=== PATIENT | male | born 1945 | race Caucasian/White ===

== ENCOUNTER 2023-05-05 09:31 | Emergency (ER) | payer OTHER, SELFPAY ==
[2023-05-05 10:41] VITALS: BP 159/85
[2023-05-05 11:02] LABS: % Basophils 0.6 % (0-2); % Eosinophils 1.3 % (0-6); % Immature Granulocytes 0.3 % (0-0.5); % Lymphocytes 23.3 % (20.5-51.1); % Monocytes 7.8 % (1.7-9.3); % Neutrophils 66.7 % (42.2-75.2); Absolute Basophils 0.1 10^3/uL (0-0.2); Absolute Eosinophils 0.1 10^3/uL (0-0.7); Absolute Lymphocytes 2.2 10^3/uL (1.2-3.4); Absolute Monocytes 0.8 10^3/uL (0.1-0.6); Absolute Neutrophils 6.4 10^3/uL (1.4-6.5); Hematocrit 38.4 % (39.0-52.0); Mean Corp Hgb Conc. 33.9 g/dL (33.0-37.0); Mean Corpuscular Hgb 29.2 pg (27.0-31.0); Mean Corpuscular Volume 86.3 fL (80.0-94.0); Mean Platelet Volume 9.9 fL (7.4-10.4); Nucleated Red Blood Cells % 0 % (-); Platelet Count 149 10^3/uL (130-400); Red Blood Cell Count 4.45 10^6/uL (4.70-6.10); Red Cell Dist. Width 13.5 % (11.5-14.5); White Blood Cell Count 9.6 10^3/uL (4.8-10.8)
[2023-05-05 11:19] LABS: ALT (SGPT) 17 U/L (0-50); AST (SGOT) 26 U/L (17-59); Albumin 4.2 g/dl (3.5-5.0); Alkaline Phosphatase 91 U/L (38-126); Blood Urea Nitrogen 25 mg/dl (9-20); Calcium 9.2 mg/dl (8.4-10.2); Carbon Dioxide 24 mmol/L (22-30); Chloride 106 mmol/L (98-107); Glucose 103 mg/dl (70-99); Potassium 4.6 mmol/L (3.5-5.1); Sodium 135 mmol/L (135-145); Total Bilirubin 0.7 mg/dl (0.2-1.3); Total Protein 7.9 g/dl (6.3-8.2); eGFR > 60.00
[2023-05-05 11:22] LABS: NT-proBNP 194 pg/ml; Troponin I < 0.012 ng/ml
--- NOTE | 2023-05-05 11:29 | ED.GENMED ---
History of Present Illness
General
Chief Complaint: Breathing Problem
Source: patient and spouse
Time Seen by Provider: 05/05/23 10:28
Travel History
Have you had any contact with someone who has COVID-19?: No
Do you have any symptoms of coronavirus? Fever > 100 degrees, chills, cough, shortness of breath, sore throat, loss of taste or smell, muscle aches, or headache?: No
History of Present Illness
History of Present Illness:
77-year-old male with past medical history of atrial fibrillation, CAD status post pacemaker placement, hyperlipidemia, previous CVA presenting to the emergency department for evaluation after he has been experiencing generalized fatigue, feeling
foggy, short of breath and generally unwell for the last 3+ weeks, seen by his contribution solicitor who ordered the patient an echocardiogram but is not scheduled to have this until May 25. Symptoms seemed worse today which is what prompted the patient to
come to the ER for further evaluation. Patient denies any fevers, chills, rigors, cough, hemoptysis, pleurisy, nausea, vomiting, melena or hematochezia. Patient reports that he had been started on Eliquis a few months back due to breakthrough
A-fib episodes despite his. He reports that he had previously been on Celebrex due to some chronic back pain but had discontinued this in favor of the Xarelto. Also of note, patient recently drove over a 3-day span to [place] but was not sure if
he had the symptoms prior to or during his travels.
Past History
Past History
ED Past Medical History: Arrthythmia, CAD, CVA, GERD, Hypercholesterolemia and Other (BPH)
ED Past Surgical History: Cardiac, Orthopedic and Other (Hernia repair)
Social History
Tobacco: Non-smoker
Alcohol: None
Drug: None
Personal:
Living: with family
Review of Systems
Review of Systems
All Other Systems: ROS reviewed and negative except as documented in HPI and ROS
Phy Exam
Physical Exam
Physical Exam:
GENERAL: Alert , in no apparent distress
EYE: conjunctiva clear
NECK: Supple
ENT: o/p clr, mmm.
CARDIAC: Regular rate and rhythm, systolic murmur appreciated
LUNGS: Clear breath sounds bilaterally, no acute respiratory distress, no wheezes/rales/rhonchi
Abdomen: Soft, nontender, nondistended
NEUROLOGICAL: Alert and oriented
SKIN: Warm and dry, skin intact.
MUSCULOSKELETAL: well perfused. no edema
PSYCH: Normal and appropriate interaction.
Scores
Heart Failure Risk
Heart Failure Risk Score: Not Applicable
Heart Score for Chest Pain Patients
STEMI patient?: Not applicable
Withdrawal Assessment of Alcohol
Withdrawal Assessment Completed?: Not applicable
Course
Orders/Labs/Results
Orders:
Orders
05/05/23 10:50
Electrocardiogram (*1) Urgent
Reason for Study: Shortness of Breath
EKG- Treatment ONCE
05/05/23 10:52
Complete Blood Count/With Diff Urgent
Comprehensive Metabolic Panel Urgent
NT-proBNP Urgent
Troponin I Urgent
05/05/23 10:54
Interrogate Pacemaker- Treatment ONCE
CR Chest - 2 Views Urgent
Comment:
Reason For Exam: SOB
Abnormal Lab Results
05/05/23
10:52
RBC 4.45 L 10^6/uL
(4.70-6.10)
Hct 38.4 L %
(39.0-52.0)
Absolute Monos (auto) 0.8 H 10^3/uL
(0.1-0.6)
BUN 25 H mg/dl
(9-20)
Glucose 103 H mg/dl
(70-99)
05/05/23 10:52
05/05/23 10:52
Vital Signs
Initial and Last Documented VS:
Initial Vital Signs
Temp Pulse Resp Pulse Ox
97.8 F 74 20 97
05/05/23 09:38 05/05/23 09:38 05/05/23 09:38 05/05/23 09:38
Last Documented Vital Signs
Temp Pulse Resp BP Pulse Ox
97.8 F 65 19 159/85 97
05/05/23 09:38 05/05/23 12:00 05/05/23 12:00 05/05/23 10:41 05/05/23 12:00
MDM/Problems Addressed
Differential Diagnosis Includes:
Valvular dysfunction, cardiac dysrhythmia, electrolyte disturbance, CHF, anemia, PE considered however given patient is already on an anticoagulant combined with his normal vital signs and overall well-appearing presentation I am not suspicious for
this as a likely diagnosis
MDM/Problems Addressed:
77-year-old male present emergency department for evaluation of fatigue, shortness of breath and generally feeling unwell over the last 3+ weeks. Overall patient's vital signs are very reassuring and he is very well-appearing. I am less suspicious
for an emergent pathology and ultimately suspect potential for one of his chronic medical conditions to be cause of symptoms. He did have a systolic murmur that was noted on exam and patient notes a history of this. I do think patient likely needs
to have his echocardiogram completed however on a nonemergent basis. Will check labs including troponin and BNP. Chest x-ray ordered. Reassessment following with anticipation of discharge and outpatient follow-up.
*Radiology
Radiology exam reviewed: preliminary read by ED provider (Normal chest x-ray)
*Pulse Oximetry
Patient hypoxic: no
*EKG
Interpreted by ED Provider?: Yes
Comparison EKG: no changes
Heart Rate: 67
Rate: normal
Rhythm: av sequential
*Electronics Production Supervisor Interpretation
Rate: normal
Rhythm: av sequential
*Critical Care Note
Total Time (30-74mins, 75-104mins- exclusive of procedures): Not Applicable
Data Reviewed
Review of Other/Old Records Reveals: Labs and Radiology Studies
Patient Management
Discussion with other providers: PCP
Escalation/DeEscalation of care consider admission/obs:
Patient's labs and imaging are all unremarkable. There is no evidence for ischemia. Pacemaker was interrogated and there have not been any abnormal cardiac dysrhythmias since his pacer was last interrogated on April 16. Notified chest pain
hotline to help expedite outpatient follow-up for the patient. Will also notify patient's primary care physician to expedite follow-up with the primary care provider. Patient is otherwise safe for discharge home and aware cautions.
ED Attending Note
-
Portions of this chart may have been created with voice recognition software.� Occasional wrong word or��sound alike� substitutions may have occurred due to the inherent limitations of voice recognition software.
Discharge Plan
Departure
Patient Disposition: Home (Routine Discharge)
Date of Disposition: 05/05/23
Time of Disposition: 12:07
Patient with high blood pressure during this ER visit?: Yes
Discharge Problem:
Shortness of breath
Instructions: Shortness of Breath (Dyspnea) (DC), Chest Pain CBC Follow Up
Prescriptions:
No Action
aspirin 81 MG tablet,delayed release (DR/EC)
81 mg PO DAILY
Hold Instructions: Resume on 11/19/21.
alfuzosin 10 MG tablet extended release 24 hr
10 mg PO DAILY
ezetimibe-simvastatin 10-20 mg Tablet
1 tab PO HS
omeprazole 20 mg Tablet,Delayed Release (Dr/Ec)
20 mg PO Q48H
PreserVision AREDS-2
1 tab PO BID
mupirocin 2 % ointment
1 applic topical BID Qty: 1 0RF
cyanocobalamin (vitamin B-12) [Vitamin B-12] 1,000 mcg Tablet
1,000 mcg PO DAILY
docusate sodium 100 mg Capsule
100 mg PO BID Qty: 30 0RF
meloxicam 15 mg Tablet
15 mg PO DAILY Qty: 30 0RF
acetaminophen 325 mg Tablet
650 mg PO Q4HWA Qty: 30 0RF
oxycodone 5 mg Tablet
5 mg PO Q4HPRN PRN (Reason: moderate pain) Qty: 20 0RF
aspirin 325 mg tablet
325 mg PO DAILY Qty: 30 0RF
Rx Instructions:
Full dose aspirin once a day for 4 weeks post op. After 4 weeks, you may resume 81 mg aspirin
sennosides [senna] 8.6 mg tablet
17.2 mg PO BID Qty: 20 0RF
Referrals:
Niharika De Anda DO [Family Provider] -
Interventions
Interventions:
*Risk Screen - Suicide Last Done: 05/05/23 09:38
*General Assessment Last Done: 05/05/23 09:38
*Neglect/Abuse Screening Last Done: 05/05/23 09:38
ED- Fall Risk Assessment Last Done: 05/05/23 10:38
*ED COVID-19 Vaccine History Last Done: 05/05/23 10:38
*Nursing Disposition Last Done: 05/05/23 12:19
ED- Cardiac Assessment Last Done: 05/05/23 10:38
ED- Pulmonary Assessment Last Done: 05/05/23 10:38
== END 2023-05-05 12:24 | disposition home or self-care (01) ==
LOC: EMR 09:31
PROVIDERS: Physician Assistant Medical; EMERGENCY PHYSICIAN Student in an Organized Health Care Education/Training Program; FAMILY PHYSICIAN Family Medicine
DX: R06.02 Shortness of breath (principal); R03.0 Elevated blood-pressure reading, without diagnosis of hypertension; I48.91 Unspecified atrial fibrillation; I25.10 Atherosclerotic heart disease of native coronary artery without angina pectoris; Z95.0 Presence of cardiac pacemaker; E78.00 Pure hypercholesterolemia, unspecified
CPT/HCPCS: 99285; 93288; 71046; 80053; 83880; 84484; 85025; 93005

== ENCOUNTER → 2023-05-07 14:44 | Outpatient (REF) | payer OTHER, SELFPAY | LOC: DHCBC HW 14:44 | PROVIDERS: ATTENDING PHYSICIAN Internal Medicine Cardiovascular Disease; FAMILY PHYSICIAN Family Medicine | DX: I25.10 Atherosclerotic heart disease of native coronary artery without angina pectoris (principal); Z95.0 Presence of cardiac pacemaker; E78.2 Mixed hyperlipidemia | CPT/HCPCS: 93306 ==

== ENCOUNTER → 2023-05-08 11:26 | Outpatient (REF) | payer OTHER, SELFPAY | LOC: DHCBC/DCA 11:26 | PROVIDERS: ATTENDING PHYSICIAN Nurse Practitioner; FAMILY PHYSICIAN Family Medicine | DX: R06.09 Other forms of dyspnea (principal); R07.89 Other chest pain; I25.10 Atherosclerotic heart disease of native coronary artery without angina pectoris | CPT/HCPCS: 78452; 93017; A9500; J2785 ==

== ENCOUNTER 2023-05-15 08:14 | Day surgery (SDC) | payer OTHER, SELFPAY ==
[2023-05-15] VITALS (19 sets, daily range): BP systolic 145–178; BP diastolic 81–109; BMI 27.7
[2023-05-15] MEDS: NSS 263 ML IV (09:55)
--- NOTE | 2023-05-15 12:40 | W.PN.UPDATE ---
Update Note
Progress Note Update
77 y/o M s/p cardiac catheterization. He is feeling well following his procedure: no CP or SOB. Tolerating diet. Right radial cath site C/D/I, no hematoma.
He will resume Eliquis tonight. Activity restrictions reviewed.
F/U in [facility] office 06/03/23.
For discharge to home after 3pm if all remains stable.
--- NOTE | 2023-05-15 13:21 | ITS.CL.CATH ---
[facility] - Catheterization
Cardiac Catheterization
Procedure Report:
CARDIAC CATHETERIZATION REPORT
Date of Procedure: 05/15/2023
Referring: Elver Shields MD
HEMODYNAMIC DATA
AO: 180/90
LV: 180/25
LEFT VENTRICULOGRAPHY: Normal left ventricular wall motion with EF 58%
CORONARY ANGIOGRAPHY
Dominance: Right
Left Main: Normal
LAD: Moderate calcification of the proximal and mid LAD with mild luminal irregularities in the LAD proper. The very large first diagonal branch has 40% ostial stenosis. The medium sized third diagonal branch has 60% ostial stenosis.
Circumflex: 50% proximal circumflex stenosis spanning the takeoff of the chronically occluded OM1. The remainder of the circumflex proper has trivial luminal disease. OM1 is occluded at its origin and faintly fills retrograde via collaterals.
This occlusion was identified by a catheterization procedure at [facility] in 2013.
RCA: The RCA is dominant with 30% proximal and 60-70% mid stenoses.
FloWire assessment: At the conclusion the diagnostic study patient underwent FloWire assessment of the proximal circumflex and mid RCA disease. Heparin was used for anticoagulation. A JL 4 guide catheter was used for the left coronary assessment.
A JR4 guide was used for the right coronary assessment. A Intellijoule flow wire was used. Results include the following:
Left circumflex: iFR 0.96, 0.97, 0.97. These are all consistent with nonflow-limiting disease.
RCA: iFR 1.0, 1.0. These are consistent with nonflow-limiting disease.
Closure Device: None-the procedure was performed via the right radial artery. The Fernie's test was normal prior to the procedure.
Radiation (mGy): 490
DAP (cm2.Gy): 35.9
Fluoroscopy time: 10.5
CONCLUSIONS
1: Systemic hypertension
2: Normal left ventricular function with EF 58%
3. Multivessel CAD as described-the proximal circumflex and mid RCA disease is nonflow limiting
4. Continue medical therapy/risk factor modification. We will resume Eliquis this evening. He has been advised to check home blood pressures and bring all readings to all physician visits
Copy to: Elver Shields MD, Niharika De Anda,
Fernie Tracey MD, [facility], [facility]
--- NOTE | 2023-05-15 15:00 | PTCARENOTE ---
At 1350 band was checked before providing handoff report and was found to be oozing significantly. With AUDITOR APPRAISER (Flor) and additional RN (Alva Haynes) assistance, the band was removed, site was cleaned and noted to be dry and intact with no s/s of
hematoma. A new radial band put back in place with 10cc of air instilled. Dr. Tracey was at the bedside during band placement and ordered that a second radial band be place above and next to the original band. The additional band was placed per
order with 7cc of air instilled. Pulse ox is 94% on the right hand. Patient denies dizziness and nausea. Patient stated no complaints at this time. Will continue to closely monitor.
== END 2023-05-15 17:25 | disposition home or self-care (01) ==
LOC: CATH 08:14
PROVIDERS: ATTENDING PHYSICIAN Internal Medicine Cardiovascular Disease; FAMILY PHYSICIAN Family Medicine; OTHER PHYSICIAN Internal Medicine Cardiovascular Disease
DX: I25.10 Atherosclerotic heart disease of native coronary artery without angina pectoris (principal); I10 Essential (primary) hypertension; Z86.73 Personal history of transient ischemic attack (TIA), and cerebral infarction without residual deficits; Z95.0 Presence of cardiac pacemaker; K21.9 Gastro-esophageal reflux disease without esophagitis; Z79.82 Long term (current) use of aspirin; Z79.891 Long term (current) use of opiate analgesic; I25.84 Coronary atherosclerosis due to calcified coronary lesion
CPT/HCPCS: 93799 ×2; 85347; 93458; 93571; 93572; C1769; C1894; Q9967

== ENCOUNTER 2023-05-24 11:31 | Emergency (ER) | payer OTHER, SELFPAY ==
[2023-05-24 11:37] VITALS: BP 155/91
[2023-05-24 12:21] VITALS: BMI 27.3
--- NOTE | 2023-05-24 13:08 | ED.GENMED ---
History of Present Illness
General
Chief Complaint: Back Pain
Source: patient
Exam Limitations: none
Time Seen by Provider: 05/24/23 12:33
Travel History
Have you had any contact with someone who has COVID-19?: No
Do you have any symptoms of coronavirus? Fever > 100 degrees, chills, cough, shortness of breath, sore throat, loss of taste or smell, muscle aches, or headache?: No
History of Present Illness
History of Present Illness:
77-year-old male presents complaining of ongoing and worsening midthoracic back pain. It is more on the right side. He is anticoagulated on Eliquis. He has a history of A-fib recently. He is not short of breath. No chest pain. No fever. No
urinary symptoms. He denies any pain that radiates to the legs. He has been taking tramadol which has been helping but not more recently. He is using Ativan half a milligram daily. He states at times the pain gets so bad that he becomes anxious.
He is at his wits end. He had an epidural steroid injection in the past as well which helped but now that he is on Eliquis he is unable to get these. No new injury. No other complaints at this time
Past History
Past History
ED Past Medical History: Arrthythmia, CAD, CVA, GERD, Hypercholesterolemia and Other (BPH)
ED Past Surgical History: Cardiac, Orthopedic and Other (Hernia repair)
Social History
Tobacco: Non-smoker
Alcohol: None
Drug: None
Personal:
Living: with family
Phy Exam
Physical Exam
Physical Exam:
General: Uncomfortable appearing male no acute respiratory distress
HEENT: Normocephalic atraumatic
Heart: Regular rate and rhythm no murmurs
Lungs: Clear to auscultation bilaterally no wheezing
Musculoskeletal exam: Tenderness over the mid thoracic spine and just to the right in the paraspinous area of the thoracic spine. Lumbar spine and costovertebral angles nontender
Vascular: 2+ dorsalis pedis pulse bilateral feet
Neurologic: 2+ reflexes to the lower extremities. Good strength and sensation to lower extremity
Course
Orders/Labs/Results
Orders:
Orders
05/24/23 13:05
CT Thoracic Spine W/o Iv Contr Urgent
Comment:
Reason For Exam: pain, midthoracic
diazePAM [Valium Injection] 5 mg IV NOW STA
Vital Signs
Initial and Last Documented VS:
Initial Vital Signs
Temp Pulse Resp BP Pulse Ox
97.8 F 79 18 155/91 97
05/24/23 11:37 05/24/23 11:37 05/24/23 11:37 05/24/23 11:37 05/24/23 11:37
Last Documented Vital Signs
Temp Pulse Resp BP Pulse Ox
97.8 F 82 18 115/70 96
05/24/23 11:37 05/24/23 15:58 05/24/23 15:58 05/24/23 15:58 05/24/23 15:58
MDM/Problems Addressed
Differential Diagnosis Includes:
Severe mid back pain. Acute on chronic. Do not suspect PE given anticoagulated state. He does have a cardiac cath done 2 days ago which was clean. Do not suspect cardiac related issue. Do suspect more of a musculoskeletal back pain. CT of
thoracic spine pending. Try IV Valium to this.
*Critical Care Note
Total Time (30-74mins, 75-104mins- exclusive of procedures): Not Applicable
Update Note
Update Note:
Patient feeling better after Valium here in the emergency room. CT scan shows stable findings. No new fracture or concerning lesions otherwise. Will send patient home with a prescription for Valium for muscle relaxation to help with pain relief.
He will continue his tramadol. He has lidocaine patches. He will continue to follow-up with his doctors otherwise
ED Attending Note
-
Portions of this chart may have been created with voice recognition software.� Occasional wrong word or��sound alike� substitutions may have occurred due to the inherent limitations of voice recognition software.
Discharge Plan
Departure
Patient Disposition: Home (Routine Discharge)
Date of Disposition: 05/24/23
Time of Disposition: 15:51
Patient with high blood pressure during this ER visit?: No
Discharge Problem:
Back pain
Prescriptions:
New
diazepam [Valium] 5 mg tablet
5 mg PO Q8H PRN (Reason: muscle spasm) Qty: 7 0RF
No Action
ezetimibe-simvastatin 10-20 mg Tablet
1 tab PO HS
omeprazole 20 mg Tablet,Delayed Release (Dr/Ec)
20 mg PO Q48H
PreserVision AREDS-2
1 tab PO BID
cyanocobalamin (vitamin B-12) [Vitamin B-12] 1,000 mcg Tablet
1,000 mcg PO DAILY
acetaminophen 325 mg Tablet
650 mg PO Q4HWA Qty: 30 0RF
tramadol 50 mg Tablet
50 mg PO Q8H PRN (Reason: pain)
metoprolol succinate 25 mg Tablet Extended Release 24 Hr
25 mg PO DAILY
tadalafil 5 mg Tablet
5 mg PO DAILY
Eliquis 5 mg Tablet
5 mg PO BID
Referrals:
Niharika De Anda DO [Family Provider] -
Interventions
Interventions:
*Risk Screen - Suicide Last Done: 05/24/23 11:37
*General Assessment Last Done: 05/24/23 11:37
*Neglect/Abuse Screening Last Done: 05/24/23 11:37
ED- Fall Risk Assessment Last Done: 05/24/23 12:21
*ED COVID-19 Vaccine History Last Done: 05/24/23 12:21
*Nursing Disposition Last Done: 05/24/23 15:59
ED-Musculoskeletal Assessment Last Done: 05/24/23 12:21
Discharge Date and Time
Discharge Date/Time: 05/24/23 15:59
Print Language: MONTSERRATIAN
[2023-05-24 13:19] VITALS: BP 154/86
[2023-05-24] MEDS: VALIUM INJECTION 5 MG IV (13:20)
[2023-05-24 14:00] VITALS: BP 114/69
[2023-05-24 15:58] VITALS: BP 115/70
== END 2023-05-24 15:59 | disposition home or self-care (01) ==
LOC: EMR 11:31
PROVIDERS: EMERGENCY PHYSICIAN Emergency Medicine; FAMILY PHYSICIAN Family Medicine
DX: M54.6 Pain in thoracic spine (principal); I48.91 Unspecified atrial fibrillation; K21.9 Gastro-esophageal reflux disease without esophagitis; E78.00 Pure hypercholesterolemia, unspecified; I25.10 Atherosclerotic heart disease of native coronary artery without angina pectoris; N40.0 Benign prostatic hyperplasia without lower urinary tract symptoms; Z86.73 Personal history of transient ischemic attack (TIA), and cerebral infarction without residual deficits; Z79.899 Other long term (current) drug therapy; Z79.01 Long term (current) use of anticoagulants; Z88.8 Allergy status to other drugs, medicaments and biological substances
CPT/HCPCS: 99284; 96374; 72128

== ENCOUNTER 2023-06-01 17:45 | Inpatient (IN) | payer OTHER, SELFPAY ==
[2023-06-01] VITALS (24 sets, daily range): BP systolic 73–169; BP diastolic 50–106; PULSE 65–90; BMI 26.9; BMI 26.5
--- NOTE | 2023-06-01 11:27 | EDRN ---
Dr. Trevizo in room w/ pt at this time.
[2023-06-01 11:36] LABS: % Basophils 0.4 % (0-2); % Eosinophils 0.4 % (0-6); % Immature Granulocytes 0.6 % (0-0.5); % Lymphocytes 16.2 % (20.5-51.1); % Monocytes 7.9 % (1.7-9.3); % Neutrophils 74.5 % (42.2-75.2); Absolute Immature Granulocytes 0.1 10^3/uL (0-0.05); Absolute Lymphocytes 1.8 10^3/uL (1.2-3.4); Absolute Monocytes 0.9 10^3/uL (0.1-0.6); Absolute Neutrophils 8.2 10^3/uL (1.4-6.5); Hemoglobin 13.2 g/dL (13.0-18.0); Mean Corp Hgb Conc. 33.8 g/dL (33.0-37.0); Mean Corpuscular Hgb 29.5 pg (27.0-31.0); Mean Corpuscular Volume 87.1 fL (80.0-94.0); Mean Platelet Volume 10.1 fL (7.4-10.4); Nucleated Red Blood Cells % 0 % (-); Platelet Count 133 10^3/uL (130-400); Red Blood Cell Count 4.48 10^6/uL (4.70-6.10); Red Cell Dist. Width 13.6 % (11.5-14.5)
--- NOTE | 2023-06-01 11:40 | EDRN ---
Pacemaker interrogated at this time.
[2023-06-01 11:42] LABS: ALT (SGPT) 25 U/L (0-50); AST (SGOT) 23 U/L (17-59); Albumin 4.2 g/dl (3.5-5.0); Alkaline Phosphatase 71 U/L (38-126); Blood Urea Nitrogen 39 mg/dl (9-20); Calcium 9.6 mg/dl (8.4-10.2); Carbon Dioxide 22 mmol/L (22-30); Chloride 101 mmol/L (98-107); Estimated Creatinine Clearance 59 ml/min; Glucose 134 mg/dl (70-99); Sodium 134 mmol/L (135-145); Total Bilirubin 0.6 mg/dl (0.2-1.3); Total Protein 7.9 g/dl (6.3-8.2); eGFR > 60.00
[2023-06-01 11:43] LABS: INR 1.12; PT 14.2 Sec (11.4-14.6)
[2023-06-01 11:54] LABS: Troponin I < 0.012 ng/ml
--- NOTE | 2023-06-01 12:17 | EDRN ---
Pacemaker interrogation report given to Dr. Trevizo at this time.
--- NOTE | 2023-06-01 12:31 | ED.GENMED ---
History of Present Illness
General
Chief Complaint: Fall
Source: patient
Exam Limitations: none
Time Seen by Provider: 06/01/23 11:11
Nursing documentation reviewed up to this point in time: agreed with
Travel History
Have you had any contact with someone who has COVID-19?: No
Do you have any symptoms of coronavirus? Fever > 100 degrees, chills, cough, shortness of breath, sore throat, loss of taste or smell, muscle aches, or headache?: No
History of Present Illness
History of Present Illness:
Patient presents to ED secondary to syncopal episode this morning. Patient had walked up approximately 6 steps to fix the clock when he experienced lightheadedness, as if he may 'pass out'. Next recollection is patient being found on the bottom of
the steps. Patient's spouse who was in next room, heard a noise, and came over immediately. Patient was lying on the floor, with eyes open. Patient has an abrasion on top of his head as well mild right-sided rib pain as well as left thumb pain.
Denies preceding chest palpitations or shortness of breath. Denies nausea or diaphoresis. Of note, patient has been experiencing lightheadedness recently, secondary to recently diagnosed Parkinson disease, as well as drug effect from metoprolol.
Patient has been off metoprolol for the past 1 week. In addition, patient is currently taking Alfuzosin for BPH. This morning, patient when he woke up, noticed that he felt weak and lightheaded. When he checked his blood pressure, it was noted to
be 70 systolic. Patient has been checking his blood pressure daily secondary to recent hypotension. Patient proceeded to have his breakfast afterwards, prior to syncopal episode.
Past History
Past History
ED Past Medical History: Arrthythmia, CAD, CVA, GERD, Hypercholesterolemia and Other (BPH)
ED Past Surgical History: Cardiac, Orthopedic and Other (Hernia repair)
Social History
Tobacco: Non-smoker
Alcohol: None
Drug: None
Personal:
Living: with family
Review of Systems
Review of Systems
Allergies reviewed?: Yes
All Other Systems: ROS reviewed and negative except as documented in HPI and ROS
Constitutional: Reports no symptoms
EENT: Reports no symptoms
Respiratory: Reports no symptoms
Cardiac: Reports syncope
ABD/GI: Reports no symptoms
: Reports no symptoms
Musculoskeletal: Reports other (finger pain)
Skin: Reports other (scalp abrasion)
Neurological: Reports dizzy
Phy Exam
Physical Exam
Physical Exam:
Physical Exam
General: no apparent distress, not acutely ill. afebrile.
Head: superficial abrasion noted over top of scalp without active bleeding.
Neck: supple. no meningeal signs.
Heart: s1/s2 regular rate and rhythm, no murmur. equal radial pulses.
Lungs: no acute respiratory distress. clear bilaterally. chest wall nontender to palpation.
Abdomen: normal bowel sounds. not tender.
Neuro: alert and oriented. no focal neurological deficits
Skin: no rash
Psychiatric: well kept. interactive and cooperative
Extremities: left thumb: nontender without ecchymosis.
Course
Orders/Labs/Results
Orders:
Orders
06/01/23
CR Hip - RT w/wo Pel 2-3 Vw* Urgent
Reason For Exam: FALL
Include a pelvis x-ray?: Yes
06/01/23 Breakfast
Cholesterol Lowering
At Your Request: Full Participation
Cholesterol Lowering: Sodium, 2 Gram
06/01/23 10:56
Electrocardiogram (*1) Urgent
Reason for Study: Chest Pain
Cardiac Monitoring- Treatment ONCE
EKG- Treatment ONCE
06/01/23 11:12
Complete Blood Count/With Diff Urgent
Troponin I Urgent
06/01/23 11:13
Comprehensive Metabolic Panel Urgent
Prothrombin Time Urgent
06/01/23 12:39
CT Head W/o Iv Contrast Urgent
Comment:
Reason For Exam: trauma
Orthostatic VS- Treatment ONCE
CR Ribs-right 3 Vw W/pa Chest* Urgent
Comment:
Reason For Exam: trauma
06/01/23 14:07
0.9% Sodium Chloride 1000 ml [Nss] 1,000 ml IV BOLUS
06/01/23 15:49
0.9% Sodium Chloride 250 ml [Nss] 250 ml IV BOLUS
06/01/23 16:00
0.9% Sodium Chloride 1000 ml [Nss] 1,000 ml IV 100 mls/hr
06/01/23 16:11
Lactated Ringers [Lr] 1,000 ml IV BOLUS
06/01/23 17:02
Admit/Transfer Patient As Directed
Co-Sign Provider:
Level of Care: Inpatient admission
Assign to:: Telemetry
Physician / Group: syncope
Diagnosis: syncope
Reason for Telemetry: Syncope
Date to Stop Telemetry: 06/03/23
Time to Stop Telemetry: 11:00
Reason for Hospitalization: syncope
Expected length of stay greater than two midnights?: Yes
ELOS- Estimated Length of Stay in days: 3
I certify the patient meets the requirements for IP care: Yes
06/01/23 17:04
Code Status As Directed
Resuscitation Status: Full Code
06/01/23 17:22
Urinalysis Reflex To Culture Routine
Date Specimen was Collected: 06/01/23
Time Specimen was Collected: 17:11
Blood Culture Q30M
CHEO Source: Blood/Venous
Specimen Description:
06/01/23 17:35
Blood Culture Q30M
CHEO Source: Blood/Venous
Specimen Description:
06/01/23 20:21
Acetaminophen [Tylenol] 650 mg PO Q4HPRN PRN
Apixaban [Eliquis] 5 mg PO BID
Midodrine [ProAmatine] 5 mg PO TID@0800,1300,1800
Prednisone [Deltasone] 4 mg PO DAILY
Tramadol HCl [Ultram] 50 mg PO Q8HPRN PRN
ezetimibe-simvastatin [Vytorin 10-20] 1 tablet PO QPM
06/01/23 20:21
CARDIOLOGY CONSULT Routine
Consulting Provider: Zachariah Copeland
Was physician already notified: Yes
NEUROLOGY CONSULT Routine
Consulting Provider: Juan Chen
Was physician already notified: Yes
Abdominal Binder As Directed
Activity As Directed
Activity Level: As Tolerated
Vital Signs As Directed
Frequency: Per unit guidelines
06/02/23 06:00
Occupational Therapy Consult [Ot Eval And Treat] IN AM
Physical Therapy Consult [Pt Eval And Treat] IN AM
Activity Level: As Tolerated
06/02/23 06:39
Basic Metabolic Panel IN AM
Complete Blood Count/No Diff IN AM
Cortisol, Random IN AM
TSH Reflex To Free T4 IN AM
06/02/23 08:00
Escitalopram Oxalate [Lexapro] 10 mg PO DAILY
06/03/23 06:00
Basic Metabolic Panel IN AM
Complete Blood Count/No Diff IN AM
06/03/23 08:00
Pantoprazole [Protonix] 40 mg PO Q48H
06/03/23 11:00
DC Protocol for Telemetry ONCE
06/04/23 06:00
Basic Metabolic Panel IN AM
Complete Blood Count/No Diff IN AM
06/05/23 06:00
Basic Metabolic Panel IN AM
Complete Blood Count/No Diff IN AM
06/06/23 06:00
Basic Metabolic Panel IN AM
Complete Blood Count/No Diff IN AM
Abnormal Lab Results
06/01/23 06/01/23
11:12 11:13
WBC 11.0 H 10^3/uL
(4.8-10.8)
RBC 4.48 L 10^6/uL
(4.70-6.10)
Abs Immat Gran (auto) 0.1 H 10^3/uL
(0-0.05)
Absolute Neuts (auto) 8.2 H 10^3/uL
(1.4-6.5)
Absolute Monos (auto) 0.9 H 10^3/uL
(0.1-0.6)
Immature Gran % 0.6 H %
(0-0.5)
Lymphocytes % 16.2 L %
(20.5-51.1)
Sodium 134 L mmol/L
(135-145)
BUN 39 H mg/dl
(9-20)
Glucose 134 H mg/dl
(70-99)
06/01/23 11:12
06/01/23 11:13
Vital Signs
Initial and Last Documented VS:
Initial Vital Signs
Temp Pulse Resp BP Pulse Ox
98 F 63 14 138/78 98
06/01/23 10:31 06/01/23 10:31 06/01/23 10:31 06/01/23 10:31 06/01/23 10:31
Last Documented Vital Signs
Temp Pulse Resp BP Pulse Ox
97.7 F 69 16 147/81 96
06/02/23 07:58 06/02/23 07:58 06/02/23 07:58 06/02/23 07:58 06/02/23 07:58
MDM/Problems Addressed
MDM/Problems Addressed:
CT head: No acute findings.
History and exam concerning for likely orthostatic hypotension, secondary to dehydration, triggering syncopal episode at home today. Positive orthostatic vital signs noted in ED, with symptoms. Patient given IV fluids in ED and retested. Patient
remains symptomatic with profound hypotension when stood up with systolic blood pressure 70s. Patient will be admitted for further eval and treatment, including continue IV hydration along with potential medication adjustment.
*EKG
Interpreted by ED Provider?: Yes
EKG Intrepretation Date: 06/01/23
Heart Rate: 62
Rate: normal
Rhythm: ventricular paced
*Critical Care Note
Total Time (30-74mins, 75-104mins- exclusive of procedures): Not Applicable
ED Attending Note
-
Portions of this chart may have been created with voice recognition software.� Occasional wrong word or��sound alike� substitutions may have occurred due to the inherent limitations of voice recognition software.
Discharge Plan
Departure
Patient Disposition: Admit
Date of Disposition: 06/01/23
Time of Disposition: 15:43
Admit to: Telemetry
Presentation/result/management discussed w/ accepting MD/DO: Hospitalist
Discharge Problem:
Syncope, Orthostatic hypotension, Contusion
Interventions
Interventions:
*Risk Screen - Suicide Last Done: 06/01/23 10:44
*General Assessment Last Done: 06/01/23 10:44
*Neglect/Abuse Screening Last Done: 06/01/23 10:44
ED- Fall Risk Assessment Last Done: 06/01/23 10:44
*ED COVID-19 Vaccine History Last Done: 06/01/23 10:44
*Nursing Disposition Last Done: 06/01/23 20:10
ED- Cardiac Assessment Last Done: 06/01/23 11:20
ED-Musculoskeletal Assessment Last Done: 06/01/23 11:20
ED- Neurological Assessment Last Done: 06/01/23 11:20
ED-Skin Assessment Last Done: 06/01/23 11:20
Discharge Date and Time
Discharge Date/Time: 06/01/23 20:11
--- NOTE | 2023-06-01 12:54 | EDRN ---
Pt has voided in urinal x2 times.
[2023-06-01] MEDS: NSS 1000 IV ×2 (14:30→15:52)
--- NOTE | 2023-06-01 15:13 | EDRN ---
Dr. Trevizo informed of repeat orthostatic vs post infusion of remainder of liter of IVF that was started by EMS. Pt was lightheaded on standing and BP was very low.
--- NOTE | 2023-06-01 15:15 | EDRN ---
Pt advised not to stand.
[2023-06-01] MEDS: NSS 250 IV (15:40)
--- NOTE | 2023-06-01 15:44 | W.PN.UPDATE ---
Update Note
Progress Note Update
This note serves as addendum to note written by Vida Villegas on 05/31.
I saw and examined the patient.
The POLICE CAPTAIN or PA's note was reviewed and I agree with the note.
Comment:
77-year-old male with past medical history of atrial fibrillation, bradycardia with pacemaker, CAD, CVA, GERD, hyperlipidemia, BPH now presents with syncopal episode this morning. Patient was walking up the steps and started feeling lightheaded,
with a sensation to pass out. No other further recollection except being found on bilateral steps. No witnessed fall. Abrasion was noted on top of his head as well as mild right-sided rib pain as well as left thumb pain. No chest pain,
shortness of breath, palpitations, diaphoresis, nausea, vomiting. Patient has been experiencing lightheadedness lately, as well as having recent diagnosis of Parkinson's disease. Patient's medications that may worsen his blood pressure include
metoprolol, alfuzosin. Of note patient did have systolics of 70s in the morning.
Vitals include heart rate of 82, respiratory rate of 29, blood pressures systolics in the 70s, although orthostatic positive. Labs remarkable for white count 11, sodium 134. Glucose within normal limits.
Plan�LR bolus now. Cardiology consult for PPM interrogation, any other etiologies of orthostatics. I suspect this is most likely secondary to autonomic dysfunction in setting of parkinsonian's. Will add on midodrine 5 mg 3 times daily, titrate as
necessary. Continue metoprolol, until interrogation performed. Can obtain urinalysis, blood cultures to ensure no obvious evidence of infection. Pain control.
--- NOTE | 2023-06-01 16:05 | HPS.HSE ---
Family Physician
-
Family Physician: Niharika De Anda
Chief Complaint
-
syncope
History of Present Illness
77-year-old with past medical history for CA, CAD, GERD< HLD, BPH presented to us with syncopal episode this morning. Patient had walked up approximately 6 steps to fix the clock when he experienced lightheadedness, as if he may 'pass out'. Next
recollection is patient being found on the bottom of the steps. Patient's spouse who was in next room, heard a noise, and came over immediately. Patient was lying on the floor, with eyes open. Patient has an abrasion on top of his head as well
mild right-sided rib pain as well as left thumb pain. As per , he was having lightheadedness and dizziness for past 1 month. His blood pressure was noted low in the morning and gets better throughout the day. Today he was hypotensive in the
morning. Patient complained of dizziness, when standing up. patient denied any headache. Patient denied chest pain or short of breath patient denied abdominal pain, nausea, vomiting, diarrhea.. Patient denied dysuria hematuria.Patient just
diagnosed with Parkinson disease a week ago. Patient has been off metoprolol for the past 1 week. In addition, patient is currently taking Alfuzosin for BPH.
Head CT negative for acute findings. Admitting for further management
Medical History
Past Medical History
Past Medical History: Reports Other
Additional Past Medical History:
Cerebral infraction
Bradycardia
Osteoarthritis
Coronary artery disease
Anemia
Enlarged prostate
TIA
Pacemaker
Hyperlipidemia
Atrial fibs
Macular degeneration bilateral
Past Surgical History: Reports Other
Additional Past Surgical History:
Right shoulder surgery
Left cataract surgery
Hernia repair
Low back surgery
Right elbow surgery
Social History
Tobacco: Non-smoker
Alcohol: None
Drug: None
Personal:
Living: With Family
Family History
Family History: Not pertinent
Allergies / Home Medications
Allergies reflects when Allergies were last updated in [facility].
Home Medications with original date entered in [facility]
Allergy/Medication List:
Allergies
Allergy/AdvReac Type Severity Reaction Status Date / Time
rosuvastatin [From Crestor] AdvReac Mild muscleaches Verified 06/01/23 10:30
Home Medications
PreserVision AREDS-2 1 tab PO BID 10/01/21
omeprazole 20 mg tablet,delayed release 20 mg PO Q48H 10/01/21
cyanocobalamin (vitamin B-12) 1,000 mcg tablet (Vitamin B-12) 1,000 mcg PO DAILY 10/22/21
apixaban 5 mg tablet (Eliquis) 5 mg PO BID 05/15/23
tramadol 50 mg tablet 50 mg PO Q8H PRN pain 05/15/23
alfuzosin 10 mg tablet,extended release 24 hr 10 mg PO DAILY 06/01/23
escitalopram oxalate 10 mg tablet (Lexapro) 10 mg PO DAILY 06/01/23
ezetimibe 10 mg-simvastatin 20 mg tablet (Vytorin) 1 tab PO QPM 06/01/23
lorazepam 0.5 mg tablet 0.5 mg PO DAILY PRN anxiety 06/01/23
prednisone 1 mg tablet 4 mg PO DAILY 06/01/23
Review of Systems
-
Constitutional: Reports No Symptoms
EENT: Reports No Symptoms
Respiratory: Reports No Symptoms
Cardiac: Reports No Symptoms
Abdomen/GI: Reports No Symptoms
: Reports No Symptoms
Musculoskeletal: Reports No Symptoms
Skin: Reports No Symptoms
Neurological: Reports Dizzy
Endocrine: Reports No Symptoms
Hematologic/Lymphatic: Reports No Symptoms
Psych: Reports No Symptoms
Physical Exam
Vital Signs
Vital Signs
Temp Pulse Resp BP Pulse Ox
98.0 F 82 29 73/53 94
06/01/23 10:44 06/01/23 15:07 06/01/23 15:07 06/01/23 15:07 06/01/23 15:07
Physical Exam
General: Well Developed, Well Nourished and No Apparent Distress
HEENT: NormoCephalic, Moist mucous membranes and Atraumatic
Respiratory: Clear
Cardiac: S1/S2 and Regular Rhythm; No Murmur or Rub
GI: Soft, Non Tender, Non Distended and Normal Bowel Sounds; No Organomegaly
Rectal: Deferred by Provider
Musculoskeletal: No Clubbing, No Cyanosis and No Edema
Skin: No Rash
Neuro: AO x 3 and Nonfocal/grossly intact
Psych: Calm
Laboratory Results
-
06/01/23 11:12
06/01/23 11:13
Laboratory Results
PT 14.2 Sec (11.4-14.6) 06/01/23 11:13
INR 1.12 06/01/23 11:13
Total Bilirubin 0.6 mg/dl (0.2-1.3) 06/01/23 11:13
AST 23 U/L (17-59) 06/01/23 11:13
ALT 25 U/L (0-50) 06/01/23 11:13
Alkaline Phosphatase 71 U/L (38-126) 06/01/23 11:13
Troponin I < 0.012 ng/ml 06/01/23 11:12
Data Reviewed
-
Diagnostic Radiology: Report Reviewed by me
CT Scan: Report Reviewed by me
Lab Data: Labs Reviewed by me
Impression/Plan
-
# Syncope/severe orthostatic hypotension likely secondary to autonomic dysfunction in setting of Parkinson's
-CT head negative
-Pacemaker interrogated in ER with no acute findings
-Positive orthostatics in ER
-EKG with atrial sensed ventricular paced rhythm
-Midodrine 5 mg 3 times a day
-abdominal binder
- received bolus in ER
-Obtain orthostatics twice a day
-Cardiology consult
-Neurology consult
-PT/OT consult
-Obtain cortisol level in the morning
-Obtain TSH with T4 in the morning
# Leukocytosis likely stress reaction
-WBCs 11.0, afebrile
-Obtain urine and blood cultures
# Fall from syncope
-Chest x-ray with no displaced rib fracture
-Head CT with no acute intracranial abnormalities
-Hip x-ray with no injury appreciated
-PT/OT consult
#History of BPH
alfuzosin continued
# History of A-fib
-Eliquis continued
# Depression
-Lexapro continued
# Hyperlipidemia
-Vytorin continued
# GERD
-omeprazole continued
# Back pain
-On prednisone taper dose
-Tramadol as needed for pain
# DVT prophylaxis
-On Eliquis
# CODE STATUS
-Full code
--- NOTE | 2023-06-01 16:16 | EDRN ---
iVda MUÑOZ in room w/pt at this time.
--- NOTE | 2023-06-01 17:27 | EDRN ---
Mailer Apprentice,Dr. Copeland, in room w/pt at this time.
[2023-06-01 17:32] LABS: Urine Albumin Negative (Neg - Trace); Urine Bilirubin Negative (Negative); Urine Character Clear (Clear); Urine Color Yellow; Urine Glucose Negative (Negative); Urine Ketone Negative (Negative); Urine Leukocyte Negative (Negative); Urine Nitrite Negative (Negative); Urine Occult Blood Negative (Negative); Urine Urobilinogen Negative (Neg - 1+)
--- NOTE | 2023-06-01 17:35 | CON.CAR ---
Addendum entered and electronically signed by Zachariah Copeland MD 06/01/23 17:51:
I saw and examined the patient.
The WATER METER MECHANIC's note was reviewed and I agree with the note.
Comment: 77 y/o male with medically managed CAD, pacemaker, pacemaker, PAF on Eliquis, BPH on alfuzosin, and recently discovered Parkinson's disease who is here after an episode of syncope today. This likely appears secondary to orthostatic
hypotension. We discussed mitigating factors including stopping metoprolol and alfuzosin at this point. Interrogation of his [employer] pacemaker was unrevealing.
-Stop possible exacerbating agents
-Agree with midodrine
-Agree with workup for possible underlying causes including infection
-Compression stockings as available
We will sign off at this time please call back with questions or concerns.
He has follow-up next week with Dr. Shields.
Original Note:
Consultation
Consultation Request
Date/Time Consultation Requested: 06/01/231702
Date/Time Consultation Performed: 06/01/231714
Requesting Provider: Vida Villegas
Performing Provider: Bryanna MUÑOZ for
Reason for Consultation: syncope
Medical History
-
Chief Complaint: syncope
History of Present Illness:
77 y/o male with medically managed CAD, pacemaker, pacemaker, PAF on Eliquis, BPH on alfuzosin, and recently discovered Parkinson's disease who is here after an episode of syncope today. He noticed his BP was on the low end, and went to go work on a
clock and passed out and fell down the stairs. Fortunately, he was not seriously injured. He is orthostatic in the ER. [facility] check was unremarkable.
Past Medical History
Past Medical History: Arrhythmias, CAD and Other (parkinson's disease)
Social History
Personal:
Living: With Family
Family History
Family History: Reviewed & Not Pertinent
Allergies / Home Medications
Allergy/AdvReac Type Severity Reaction Status Date / Time
rosuvastatin [From Crestor] AdvReac Mild muscleaches Verified 06/01/23 10:30
�Medication �Instructions �Recorded �Confirmed �Type
cyanocobalamin (vitamin B-12) 1,000 mcg PO Q48H@0800 10/22/21 06/01/23 History
1,000 mcg tablet (Vitamin B-12)
apixaban 5 mg tablet (Eliquis) 5 mg PO BID 05/15/23 06/01/23 History
tramadol 50 mg tablet 50 mg PO Q6HPRN PRN severe pain 05/15/23 06/01/23 History
Eylea 1 dose LEFT EYE Q4W 06/01/23 06/01/23 History
Eylea 1 dose RIGHT EYE .Q 7 WEEKS 06/01/23 06/01/23 History
acetaminophen 325 mg tablet 650 mg PO BIDPRN PRN mild pain 06/01/23 06/01/23 History
(Tylenol)
alfuzosin 10 mg tablet,extended 10 mg PO DAILY 06/01/23 06/01/23 History
release 24 hr
carboxymethylcellulose sodium 1 % 1 drp BOTH EYES DAILYPRN PRN eye 06/01/23 06/01/23 History
eye liquid gel drops irritation
ciclopirox 1 applic topical .3 TIMES A WEEK 06/01/23 06/01/23 History
PRN apply to scalp
escitalopram oxalate 10 mg tablet 10 mg PO HS 06/01/23 06/01/23 History
(Lexapro)
ezetimibe 10 mg-simvastatin 20 mg 1 tab PO HS 06/01/23 06/01/23 History
tablet (Vytorin)
lorazepam 0.5 mg tablet 0.5 mg PO BIDPRN PRN anxiety 06/01/23 06/01/23 History
methylprednisolone 4 mg tablets in 0 mg PO PER PKG DIR 06/01/23 06/01/23 History
a dose pack
omeprazole 20 mg capsule,delayed 20 mg PO Q48H@0800 06/01/23 06/01/23 History
release
vit C 250 mg-vit E 90 mg-zinc 40 1 cap PO BID 06/01/23 06/01/23 History
mg-copper 1 [id number]
capsule (PreserVision AREDS-2)
Review of Systems
-
History Source: Patient
All other systems: Negative unless noted
Cardiac: Syncope
Physical Exam
Vital Signs
Temp Pulse Resp BP Pulse Ox
98.0 F 69 18 132/77 96
06/01/23 10:44 06/01/23 17:15 06/01/23 17:15 06/01/23 17:00 06/01/23 17:15
Lab Results
06/01/23 11:12
06/01/23 11:13
Troponin I < 0.012 ng/ml 06/01/23 11:12
Physical Exam
General: Well Developed and No Apparent Distress
HEENT: Normocephalic and Anicteric
Respiratory: Clear and Non Labored Respirations
Cardiac: Regular Rhythm
Skin: Warm and Dry
Neuro: AO x 3
Psych: Calm
Impression / Plan
-
Syncope:
-likely related to orthostatic hypotension (which is severe)- patient with recently discovered Parkinson's, likely some autonomic dysfunction- follow orthos
-remain off metoprolol, hold alfuzosin- may need alternative?
-w/u underway- cortisol, blood cultures etc.
-fluids administered, midodrine ordered
-pacemaker check in ER unremarkable
-recent echo as below
CAD:
-recent cath as noted
-continue Eliquis, statin
AFIB, paroxysmal:
-stable
-continue Eliquis
Data Reviewed
-
EKG: Tracing Personally Visualized and interpreted ( BOILER ROOM HELPER 62 BPM)
Radiology: Report Reviewed by me (head CT: No acute intracranial abnormalities appreciated.)
Medical Tests (Nuc Med, Echo etc): Report Reviewed by me (Cath 05/15/23: Systemic hypertension 2: Normal left ventricular function with EF 58% 3. Multivessel CAD as described-the proximal circumflex and mid RCA disease is nonflow limiting) and
Other (echo 05/07/23: Mildly depressed left ventricular systolic function. Left ventricular ejection fraction is 50%. Aortic sclerosis without stenosis.)
Labs: Labs Reviewed by me
[2023-06-01] MEDS: LR 1000 IV (17:36)
[2023-06-01] MEDS: DELTASONE 4 MG PO (21:13)
[2023-06-01] MEDS: ELIQUIS 5 MG PO (21:13)
[2023-06-01] MEDS: ProAmatine 5 MG PO (21:13)
[2023-06-01] MEDS: LEXAPRO 10 MG PO (21:47)
--- NOTE | 2023-06-01 22:00 | PTCARENOTE ---
Patient arrived from ER. Vital signs documented. Patient oriented to unit. Call jennings within reach. Bruise noted on right hip.
[2023-06-02] VITALS (8 sets, daily range): BP systolic 76–168; BP diastolic 49–97; PULSE 58–81; BMI 26.5
--- NOTE | 2023-06-02 07:37 | W.PN.CD ---
Today's Communication / Plan
-
BP appears stable
Alfuzosin stopped . patient also given midodrine. Need to monitor for supine hypertenison. With washout of alfuzosin midodrine may not be needed as much.
Monitor for urologic symptoms as alfuzosin s held
Impression / Plan
-
Syncope:
-likely related to orthostatic hypotension (which is severe)-
-remain off metoprolol, holding alfuzosin
-w/u underway- cortisol, blood cultures etc.
-f midodrine ordered
-pacemaker check in ER unremarkable
-recent echo - EF 50% aortic sclerosis withotu stenosis 05/07/23
CAD:
-recent cath as noted
-continue Eliquis, statin
AFIB, paroxysmal:
-stable
-continue Eliquis
Physical Exam
Vital Signs/Labs
Vital Signs
Temp Pulse Resp BP Pulse Ox
98.1 F 61 18 120/64 95
06/02/23 03:15 06/02/23 03:15 06/02/23 03:15 06/02/23 03:15 06/02/23 03:15
06/01/23 06/02/23 06/03/23
06:59 06:59 06:59
Actual Weight 86.239 kg
PT 14.2 Sec (11.4-14.6) 06/01/23 11:13
INR 1.12 06/01/23 11:13
LAB Results
06/01/23
11:12
Troponin I < 0.012
Physical Exam
Constitutional: No acute distress
Cardiovascular: Rhythm & rate is regular
Respiratory: Respiratory effort normal
GI: Soft
Neuro/Psych: Alert
Data Reviewed
-
Date of Service: June 02, 2023
Medical Decision Making: Reviewed Test Results
Echo: Report Reviewed by me
Labs: Labs Reviewed by me
Old Records: Requested
[2023-06-02 07:45] LABS: Hematocrit 37.8 % (39.0-52.0); Hemoglobin 12.9 g/dL (13.0-18.0); Mean Corp Hgb Conc. 34.1 g/dL (33.0-37.0); Mean Corpuscular Hgb 29.8 pg (27.0-31.0); Mean Corpuscular Volume 87.3 fL (80.0-94.0); Mean Platelet Volume 10.5 fL (7.4-10.4); Platelet Count 146 10^3/uL (130-400); Red Blood Cell Count 4.33 10^6/uL (4.70-6.10); Red Cell Dist. Width 13.6 % (11.5-14.5); White Blood Cell Count 10.8 10^3/uL (4.8-10.8)
[2023-06-02] MEDS: ProAmatine 5 MG PO ×3 (08:30→17:00)
[2023-06-02] MEDS: ELIQUIS 5 MG PO ×2 (08:30→21:08)
[2023-06-02] MEDS: DELTASONE 4 MG PO (08:30)
[2023-06-02 08:55] LABS: Blood Urea Nitrogen 26 mg/dl (9-20); Calcium 9.5 mg/dl (8.4-10.2); Carbon Dioxide 26 mmol/L (22-30); Chloride 100 mmol/L (98-107); Estimated Creatinine Clearance 64 ml/min; Glucose 101 mg/dl (70-99); Sodium 136 mmol/L (135-145); eGFR > 60.00
--- NOTE | 2023-06-02 09:11 | PTCARENOTE ---
Notified provider of patient's positive orthostatic vital signs
[2023-06-02 09:20] LABS: Cortisol, Random 16.7 ug/dl; TSH Reflex To Free T4 0.36 uIU/ml (0.47-4.68)
[2023-06-02 09:38] LABS: Hepatitis C Antibody Negative (Negative)
[2023-06-02 09:48] LABS: Free T4 1.24 ng/dl (0.78-2.19)
--- NOTE | 2023-06-02 11:45 | W.PN.HOSP.TC ---
Today's Communication/Plan
-
abdominal binder, midodrine
stop alfuzosin, metoprolol
PT/OT
Educated on orthostatics
Monitor for bph symptoms
F/u PCP, Cards, Neuro, Urology outpatient
Assessment / Plan
Assessment / Plan
Physical Exam
General: Well Developed, Well Nourished and No Apparent Distress
HEENT: NormoCephalic, Moist mucous membranes and Atraumatic
Respiratory: Clear
Cardiac: S1/S2 and Regular Rhythm; No Murmur or Rub
GI: Soft, Non Tender, Non Distended and Normal Bowel Sounds; No Organomegaly
Rectal: Deferred by Provider
Musculoskeletal: No Clubbing, No Cyanosis and No Edema
Skin: No Rash
Neuro: AO x 3 and Nonfocal/grossly intact
Psych: Calm
#Syncope most likely 2/2 to
#Orthostatic hypertension
� Suspect secondary to autonomic dysfunction in setting of Parkinson's disease
� Stop alfuzosin, metoprolol
� Start midodrine 5 mg 3 times daily, monitor for hypotension, supine
� Cortisol, TSH with reflex T4 within normal limits
� Received fluids, do not suspect this is due to dehydration
� No evidence of infectious source at this time, UA negative, afebrile
� Pacemaker interrogated in ED, no acute findings
� CT head unremarkable
� Appreciate cardiology recommendations
� Echo EF 50%, aortic sclerosis�stenosis 05/07/2023
�Educated on slow rising, monitoring hypotension, orthostatics
� Follow-up PCP, cardiology, neurology closely
#CAD
# Recent cath
�Eliquis, statin
� Cardiology following
#Atrial fibrillation, paroxysmal
Stable
Continue Eliquis
#Leukocytosis
� Most likely stress reaction secondary to syncope
� Monitor fever curve, no evidence of infection at this time
#Fall-secondary to syncope
� No evidence of fractures on x-ray
� Pain control
#History of BPH
alfuzosin stopped
-monitor bph symptoms outpatient
# History of A-fib
-Eliquis continued
# Depression
-Lexapro continued
# Hyperlipidemia
-Vytorin continued
# GERD
-omeprazole continued
# Back pain
-On prednisone taper dose
-Tramadol as needed for pain
# DVT prophylaxis
-On Eliquis
# CODE STATUS
-Full code
More than 30 minutes spent in discharge including
Final examination of the patient
Summarizing hospital stay
Instructions for continuing care to all relevant caregivers
Preparation of discharge records, prescriptions, and referral forms
Total time spent (35 in minutes):
Anticipated Discharge: Today
Subjective/Interval History
-
Date of Service: June 02, 2023
�Orthostatics somewhat improved with abdominal binder, midodrine. Working with PT
Objective Data
-
Labs:
Laboratory Results
06/02/23
06:39
WBC 10.8
Hgb 12.9 L
Hct 37.8 L
Plt Count 146
Sodium 136
Potassium 5.0
Chloride 100
Carbon Dioxide 26
BUN 26 H
Creatinine 1.0
Glucose 101 H
Calcium 9.5
Vital Signs:
Vital Signs
Temp Pulse Resp BP Pulse Ox
97.7 F 69 16 147/81 96
06/02/23 07:58 06/02/23 07:58 06/02/23 07:58 06/02/23 07:58 06/02/23 07:58
I&O
06/01/23 06/02/23 06/03/23
06:59 06:59 06:59
Intake Total 480 / 480
Output Total 900 / 900
Balance -420 / -420
Review of Systems
-
History Source: Patient
All other systems: Not reviewed unless documented
Data Reviewed
-
Diagnostic Radiology: Image personally visualized and interpreted and Report Reviewed by me
CT Scan: Image personally visualized and interpreted and Report Reviewed by me
Labs: Labs Reviewed by me
--- NOTE | 2023-06-02 12:09 | CM ---
Patient seen bedside with , Flor, initial assessment completed. Patient resides in a [place] plus community, multiple story home with a first floor set up, three steps to enter. Patient denies DME, VN, or SNF. Patient confirms PCP Niharika De Anda,
pharmacy [facility], confirms he has prescription coverage. CM discussed PT recommendation of HH/ SNF, patient is agreeable to SNF and reports he was diagnosed with Parkinson's a week ago, feels as though he will benefit SNF. Family requesting
referrals to [facility], [facility] and [facility]. CM will continue to follow for discharge planning needs.
Plan; SNF, will require auth.
--- NOTE | 2023-06-02 17:34 | PTCARENOTE ---
Followed up with provider via TT about patient's continued positive orthostatic vitals with PT. Midodrine continued throughout the day. BP improved throughout the shift.
[2023-06-02] MEDS: LEXAPRO 10 MG PO (21:08)
[2023-06-02] MEDS: NON-FORMULARY ITEM 1 TABLET PO (21:33)
[2023-06-03] VITALS (7 sets, daily range): BP systolic 76–154; BP diastolic 45–84; PULSE 55–81
[2023-06-03 07:56] LABS: Hematocrit 39.3 % (39.0-52.0); Hemoglobin 12.9 g/dL (13.0-18.0); Mean Corp Hgb Conc. 32.8 g/dL (33.0-37.0); Mean Corpuscular Hgb 29.2 pg (27.0-31.0); Mean Corpuscular Volume 88.9 fL (80.0-94.0); Platelet Count 133 10^3/uL (130-400); Red Blood Cell Count 4.42 10^6/uL (4.70-6.10); Red Cell Dist. Width 13.6 % (11.5-14.5); White Blood Cell Count 10.4 10^3/uL (4.8-10.8)
[2023-06-03] MEDS: ProAmatine PO (08:30)
[2023-06-03] MEDS: DELTASONE 4 MG PO (08:31)
[2023-06-03] MEDS: PROTONIX 40 MG PO (08:31)
[2023-06-03] MEDS: ELIQUIS 5 MG PO ×2 (08:31→19:42)
[2023-06-03 08:34] LABS: Blood Urea Nitrogen 27 mg/dl (9-20); Calcium 9.4 mg/dl (8.4-10.2); Carbon Dioxide 26 mmol/L (22-30); Chloride 101 mmol/L (98-107); Estimated Creatinine Clearance 64 ml/min; Glucose 104 mg/dl (70-99); Potassium 4.8 mmol/L (3.5-5.1); Sodium 133 mmol/L (135-145); eGFR > 60.00
--- NOTE | 2023-06-03 09:06 | W.PN.CD ---
Today's Communication / Plan
-
-Blood pressure now improved and patient is on midodrine. With physical therapy standing blood pressures were in the low 100s and patient was asymptomatic. Patient does have elevated blood pressures sitting and supine will need to allow for some
supine hypertension but will need to be careful to avoid severe supine hypertension. Avoid giving midodrine in the late evening. Last dose currently 5 to 6 PM.
Impression / Plan
-
Syncope:
-likely related to orthostatic hypotension (which is severe)-
-remain off metoprolol, holding alfuzosin
-w/u underway- cortisol, blood cultures etc.
-Blood pressure now improved and patient is on midodrine. With physical therapy standing blood pressures were in the low 100s and patient was asymptomatic. Patient does have elevated blood pressures sitting and supine will need to allow for some
supine hypertension but will need to be careful to avoid severe supine hypertension. Avoid giving midodrine in the late evening. Last dose currently 5 to 6 PM.
-pacemaker check in ER unremarkable
-recent echo - EF 50% aortic sclerosis withoUT stenosis 05/07/23
CAD:
-recent cath as noted
-continue Eliquis, statin
AFIB, paroxysmal:
-stable
-continue Eliquis
Note patient is now off alfuzosin. Normally follows with Dr. Pittman for his urologic issues. This issue will need to be monitored if patient remains off aLfluzosin. If he has more obstructive symptoms requiring medical therapy it is possible that
he may have less blood pressure reduction with Flomax rather than alpha Zosyn and may be able to tolerate the medication while using midodrine. However use of Flomax can increase likelihood of orthostatic symptoms.
Physical Exam
Vital Signs/Labs
Vital Signs
Temp Pulse Resp BP Pulse Ox
97.9 F 70 16 154/84 96
06/03/23 07:20 06/03/23 07:20 06/03/23 07:20 06/03/23 07:20 06/03/23 07:20
06/02/23 06/03/23 06/04/23
06:59 06:59 06:59
Actual Weight 86.239 kg
06/03/23 07:16
06/03/23 07:16
PT 14.2 Sec (11.4-14.6) 06/01/23 11:13
INR 1.12 06/01/23 11:13
Free T4 1.24 ng/dl (0.78-2.19) 06/02/23 06:39
LAB Results
06/01/23
11:12
Troponin I < 0.012
Physical Exam
Constitutional: No acute distress
EENT: Anicteric
Cardiovascular: Rhythm & rate is regular
Respiratory: Respiratory effort normal
GI: Soft
Neuro/Psych: Alert
Other: Skin
Data Reviewed
-
Date of Service: June 03, 2023
Medical Decision Making: Reviewed Test Results
Medical Tests (PFT, Pathology etc): Report Reviewed by me
Labs: Labs Reviewed by me
--- NOTE | 2023-06-03 10:16 | PN.CDI ---
CDI
- -
CDI:
Physician Documentation Request
Admit Date: 06/01/23 17:45
Dear Doctor Regina,
Clinical Indicators:
Patient admitted with syncope; recent diagnosis of Parkinson's disease.
06/01 PN, 'Orthostatic hypertension� Suspect secondary to autonomic dysfunction in setting of Parkinson's disease.'
Based on the above, could you clarify in the progress notes, type of orthostatic hypotension:
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
Orthostatic hypotension only
Other, please specify
Use of terms such as suspected, likely, concern for, or probable (associated with a specific diagnosis that is being evaluated, monitored, or treated as if it exists) are acceptable and can be coded in the inpatient setting, when documented at the
time of discharge.
Thank you,
MYRA Alarcon RN
CDI Specialist
available via tiger text
Please use your independent medical judgment in providing your response.
[2023-06-03] MEDS: ProAmatine 5 MG PO ×2 (10:20→16:22)
--- NOTE | 2023-06-03 11:33 | CM ---
Addendum entered by Jordyn Crandall 06/03/23 16:39:
Initiated [employer] authorization, clinicals faxed to [phone]
Pended Reference # [id number]
Addendum entered by Jordyn Crandall 06/03/23 15:14:
Spoke with [facility] by [facility]
NPI# [id number]
MD: Dr Giancarlo Juan NPI# [id number]
[employer] Auth to be initiated.
Addendum entered by Jordyn Crandall 06/03/23 14:54:
TC to [facility] no bed.
[facility] and [facility] reviewing.
Original Note:
Referrals sent, plan skilled rehab.
Plan: skilled rehab once bed available and [employer] auth obtained.
--- NOTE | 2023-06-03 12:52 | W.PN.HOSP.TC ---
Today's Communication/Plan
-
midodrine changed to bid; 8 am and 5pm; consider tid dosing if orthostatic in midafternoon
dc ready, pending placement
Assessment / Plan
Assessment / Plan
Physical Exam
General: Well Developed, Well Nourished and No Apparent Distress
HEENT: NormoCephalic, Moist mucous membranes and Atraumatic
Respiratory: Clear
Cardiac: S1/S2 and Regular Rhythm; No Murmur or Rub
GI: Soft, Non Tender, Non Distended and Normal Bowel Sounds; No Organomegaly
Rectal: Deferred by Provider
Musculoskeletal: No Clubbing, No Cyanosis and No Edema
Skin: No Rash
Neuro: AO x 3 and Nonfocal/grossly intact
Psych: Calm
#Syncope most likely 2/2 to
#Orthostatic hypertension
� Suspect secondary to autonomic dysfunction in setting of Parkinson's disease
� Stop alfuzosin, metoprolol
� Start midodrine 5 mg bid - 8 am and 5 pm, monitor for hypertension, supine
� Cortisol, TSH with reflex T4 within normal limits
� Received fluids, do not suspect this is due to dehydration
� No evidence of infectious source at this time, UA negative, afebrile
� Pacemaker interrogated in ED, no acute findings
� CT head unremarkable
� Appreciate cardiology recommendations
� Echo EF 50%, aortic sclerosis�stenosis 05/07/2023
�Educated on slow rising, monitoring hypotension, orthostatics
� Follow-up PCP, cardiology, neurology closely
#CAD
# Recent cath
�Eliquis, statin
� Cardiology following
#Atrial fibrillation, paroxysmal
Stable
Continue Eliquis
#Leukocytosis
� Most likely stress reaction secondary to syncope
� Monitor fever curve, no evidence of infection at this time
#Fall-secondary to syncope
� No evidence of fractures on x-ray
� Pain control
#hyponatremia, acute
-ctm
#History of BPH
alfuzosin stopped
-monitor bph symptoms outpatient
# History of A-fib
-Eliquis continued
# Depression
-Lexapro continued
# Hyperlipidemia
-Vytorin continued
# GERD
-omeprazole continued
# Back pain
-On prednisone taper dose
-Tramadol as needed for pain
# DVT prophylaxis
-On Eliquis
# CODE STATUS
-Full code
Anticipated Discharge: 24 - 48 hours
Subjective/Interval History
-
Date of Service: June 03, 2023
no acute events
Objective Data
-
Labs:
Laboratory Results
06/03/23
07:16
WBC 10.4
Hgb 12.9 L
Hct 39.3
Plt Count 133
Sodium 133 L
Potassium 4.8
Chloride 101
Carbon Dioxide 26
BUN 27 H
Creatinine 1.0
Glucose 104 H
Calcium 9.4
Vital Signs:
Vital Signs
Temp Pulse Resp BP Pulse Ox
97.8 F 63 16 123/67 98
06/03/23 11:30 06/03/23 11:30 06/03/23 11:30 06/03/23 11:30 06/03/23 11:30
I&O
06/02/23 06/03/23 06/04/23
06:59 06:59 06:59
Intake Total 480 / 480 2220 / 2220
Output Total 900 / 900 1100 / 1100
Balance -420 / -420 1120 / 1120
Review of Systems
-
History Source: Patient
All other systems: Not reviewed unless documented
Data Reviewed
-
Diagnostic Radiology: Image personally visualized and interpreted and Report Reviewed by me
CT Scan: Image personally visualized and interpreted and Report Reviewed by me
Labs: Labs Reviewed by me
--- NOTE | 2023-06-03 16:47 | PTCARENOTE ---
Patient's BP in AM 154 systolic, midodrine held per MD, changed to BID vs TID. Orthos rechecked approx 1500, positive, MD notified, midodrine given (see MAR) and provider to chance midodrine back to TID.
[2023-06-03] MEDS: NON-FORMULARY ITEM 1 TABLET PO (21:51)
[2023-06-03] MEDS: LEXAPRO 10 MG PO (21:51)
[2023-06-04] VITALS (9 sets, daily range): BP systolic 94–179; BP diastolic 54–99; PULSE 65–76; O2SAT 98
--- NOTE | 2023-06-04 08:17 | W.PN.CD ---
Today's Communication / Plan
-
- BP remains OK, allowing for higher BPs to avoid severe orthostasis
- Likely headed to rehab today
We will sign off please call back with questions/concerns.
Impression / Plan
-
Syncope:
-likely related to orthostatic hypotension (which is severe)-
-remain off metoprolol, holding alfuzosin
-w/u underway- cortisol, blood cultures etc.
-Blood pressure now improved and patient is on midodrine. With physical therapy standing blood pressures were in the low 100s and patient was asymptomatic. Patient does have elevated blood pressures sitting and supine will need to allow for some
supine hypertension but will need to be careful to avoid severe supine hypertension. Avoid giving midodrine in the late evening. Last dose currently 5 to 6 PM.
-pacemaker check in ER unremarkable
-recent echo - EF 50% aortic sclerosis withoUT stenosis 05/07/23
- He may need low dose BP meds at some point, however, still having some orthostatic symptoms this AM when sat up and on edge of bed had felt unsteady
CAD:
-recent cath as noted
-continue Eliquis, statin
AFIB, paroxysmal:
-stable
-continue Eliquis
Note patient is now off alfuzosin. Normally follows with Dr. Pittman for his urologic issues. This issue will need to be monitored if patient remains off aLfluzosin. If he has more obstructive symptoms requiring medical therapy it is possible that
he may have less blood pressure reduction with Flomax rather than alpha Zosyn and may be able to tolerate the medication while using midodrine. However use of Flomax can increase likelihood of orthostatic symptoms.
Physical Exam
Vital Signs/Labs
Vital Signs
Temp Pulse Resp BP Pulse Ox
97.9 F 68 22 167/86 98
06/04/23 07:30 06/04/23 07:30 06/04/23 07:30 06/04/23 07:30 06/04/23 07:30
PT 14.2 Sec (11.4-14.6) 06/01/23 11:13
INR 1.12 06/01/23 11:13
Free T4 1.24 ng/dl (0.78-2.19) 06/02/23 06:39
LAB Results
06/01/23
11:12
Troponin I < 0.012
Physical Exam
Constitutional: No acute distress
Cardiovascular: Rhythm & rate is regular and Pedal edema is absent
Respiratory: Respiratory effort normal and Lungs clear to auscul.
GI: Soft
Neuro/Psych: Alert and Oriented
Data Reviewed
-
Date of Service: June 04, 2023
Medical Decision Making: Reviewed Test Results
Labs: Labs Reviewed by me
[2023-06-04 08:40] LABS: Hematocrit 38.2 % (39.0-52.0); Hemoglobin 12.9 g/dL (13.0-18.0); Mean Corp Hgb Conc. 33.8 g/dL (33.0-37.0); Mean Corpuscular Hgb 29.7 pg (27.0-31.0); Mean Corpuscular Volume 87.8 fL (80.0-94.0); Platelet Count 144 10^3/uL (130-400); Red Blood Cell Count 4.35 10^6/uL (4.70-6.10); Red Cell Dist. Width 13.6 % (11.5-14.5); White Blood Cell Count 11.7 10^3/uL (4.8-10.8)
[2023-06-04] MEDS: ProAmatine PO (09:00)
[2023-06-04] MEDS: ELIQUIS 5 MG PO ×2 (09:00→20:04)
--- NOTE | 2023-06-04 09:29 | CM ---
Addendum entered by Kaykay Schwartz 06/04/23 10:53:
Patient and seen, updated that CM waiting on auth status. Patient and agreeable to home with VN services if auth declined.
Original Note:
CM called [employer] to check status of auth, reference # [id number]. Auth is still pending. CM will continue to follow for discharge planning needs.
Plan; [facility], auth pending.
[2023-06-04 09:30] LABS: Blood Urea Nitrogen 25 mg/dl (9-20); Calcium 9.3 mg/dl (8.4-10.2); Carbon Dioxide 25 mmol/L (22-30); Chloride 102 mmol/L (98-107); Estimated Creatinine Clearance 58 ml/min; Glucose 107 mg/dl (70-99); Potassium 4.4 mmol/L (3.5-5.1); Sodium 134 mmol/L (135-145); eGFR > 60.00
[2023-06-04] MEDS: ProAmatine 5 MG PO ×2 (10:16→17:03)
--- NOTE | 2023-06-04 13:30 | W.PN.HOSP.TC ---
Addendum entered and electronically signed by Kwesi Tapia MD 06/04/23 15:44:
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
Original Note:
Today's Communication/Plan
-
Midodrine
DC pending, continuous pillowcase cutter aware
Assessment / Plan
Assessment / Plan
Physical Exam
General: Well Developed, Well Nourished and No Apparent Distress
HEENT: NormoCephalic, Moist mucous membranes and Atraumatic
Respiratory: Clear
Cardiac: S1/S2 and Regular Rhythm; No Murmur or Rub
GI: Soft, Non Tender, Non Distended and Normal Bowel Sounds; No Organomegaly
Rectal: Deferred by Provider
Musculoskeletal: No Clubbing, No Cyanosis and No Edema
Skin: No Rash
Neuro: AO x 3 and Nonfocal/grossly intact
Psych: Calm
#Syncope most likely 2/2 to
#Orthostatic hypertension
� Suspect secondary to autonomic dysfunction in setting of Parkinson's disease
� Stop alfuzosin, metoprolol
� Start midodrine 5 mg bid - 8 am and 5 pm, monitor for hypertension, supine; may be titrated 3 times daily if blood pressures permit
� Cortisol, TSH with reflex T4 within normal limits
� Received fluids, do not suspect this is due to dehydration
� No evidence of infectious source at this time, UA negative, afebrile
� Pacemaker interrogated in ED, no acute findings
� CT head unremarkable
� Appreciate cardiology recommendations
� Echo EF 50%, aortic sclerosis�stenosis 05/07/2023
�Educated on slow rising, monitoring hypotension, orthostatics
� Follow-up PCP, cardiology, neurology closely
#CAD
# Recent cath
�Eliquis, statin
� Cardiology following
#Atrial fibrillation, paroxysmal
Stable
Continue Eliquis
#Leukocytosis
� Most likely stress reaction secondary to syncope
� Monitor fever curve, no evidence of infection at this time
#Fall-secondary to syncope
� No evidence of fractures on x-ray
� Pain control
#hyponatremia, acute
-ctm
#History of BPH
alfuzosin stopped
-monitor bph symptoms outpatient
# History of A-fib
-Eliquis continued
# Depression
-Lexapro continued
# Hyperlipidemia
-Vytorin continued
# GERD
-omeprazole continued
# Back pain
-On prednisone taper dose
-Tramadol as needed for pain
# DVT prophylaxis
-On Eliquis
# CODE STATUS
-Full code
Anticipated Discharge: Within 24 hours
Subjective/Interval History
-
Date of Service: June 04, 2023
Tolerated ambulation better than previously
Objective Data
-
Labs:
Laboratory Results
06/04/23
07:57
WBC 11.7 H
Hgb 12.9 L
Hct 38.2 L
Plt Count 144
Sodium 134 L
Potassium 4.4
Chloride 102
Carbon Dioxide 25
BUN 25 H
Creatinine 1.1
Glucose 107 H
Calcium 9.3
Vital Signs:
Vital Signs
Temp Pulse Resp BP Pulse Ox
98.0 F 61 18 134/75 97
06/04/23 11:46 06/04/23 11:46 06/04/23 11:46 06/04/23 11:46 06/04/23 11:46
I&O
06/03/23 06/04/23 06/05/23
06:59 06:59 06:59
Intake Total 2220 / 2220 1440 / 1440
Output Total 1100 / 1100 1350 / 1350
Balance 1120 / 1120 90 / 90
Review of Systems
-
History Source: Patient
All other systems: Not reviewed unless documented
Data Reviewed
-
Diagnostic Radiology: Image personally visualized and interpreted and Report Reviewed by me
CT Scan: Image personally visualized and interpreted and Report Reviewed by me
Labs: Labs Reviewed by me
[2023-06-04] MEDS: LEXAPRO 10 MG PO (20:04)
[2023-06-04] MEDS: NON-FORMULARY ITEM 1 TABLET PO (20:04)
[2023-06-05 03:33] VITALS: BP 165/89
[2023-06-05 06:03] VITALS: BP 141/82
[2023-06-05 07:30] VITALS: BP 107/70; BP 151/88; BP 174/94; PULSE 68; PULSE 71; PULSE 84
[2023-06-05 07:46] LABS: Hematocrit 36.8 % (39.0-52.0); Hemoglobin 12.2 g/dL (13.0-18.0); Mean Corp Hgb Conc. 33.2 g/dL (33.0-37.0); Mean Corpuscular Hgb 29.3 pg (27.0-31.0); Mean Corpuscular Volume 88.5 fL (80.0-94.0); Mean Platelet Volume 9.8 fL (7.4-10.4); Platelet Count 141 10^3/uL (130-400); Red Blood Cell Count 4.16 10^6/uL (4.70-6.10); Red Cell Dist. Width 13.5 % (11.5-14.5); White Blood Cell Count 9.7 10^3/uL (4.8-10.8)
[2023-06-05 08:57] LABS: Blood Urea Nitrogen 26 mg/dl (9-20); Calcium 9.3 mg/dl (8.4-10.2); Carbon Dioxide 25 mmol/L (22-30); Chloride 99 mmol/L (98-107); Estimated Creatinine Clearance 64 ml/min; Glucose 104 mg/dl (70-99); Potassium 4.6 mmol/L (3.5-5.1); Sodium 133 mmol/L (135-145); eGFR > 60.00
--- NOTE | 2023-06-05 09:10 | CM ---
Addendum entered by Kaykay Schwartz 06/05/23 13:40:
CM spoke with Deya from [facility], updated that will provide transportation, around 2:00/2:30 p.m. IMM reviewed and signed with patient, placed in chart.
Plan; [facility]
Report: [phone]

Addendum entered by Kaykay Schwartz 06/05/23 12:28:
CM received update from [facility], auth approved skilled level 1, 06/04-06/16, next review 06/17 to fax [phone]. Auth reference #[id number]. CM spoke with Deya from [facility], provided auth information, able to accept patient today. CM spoke
with patients , updated that auth was approved. TT sent to patients nurse and hospitalist with update.
Original Note:
CM spoke with [facility] community representative, informed authorization is still pending. CM received call from Deya at [facility] inquiring about auth status, reports to CM that SNF will have to fill the bed if they do not get the auth. CM will continue to
follow for discharge planning needs.
Plan; [facility] SNF pending auth, may lose bed at [facility] if auth not received today.
[2023-06-05] MEDS: PROTONIX 40 MG PO (10:02)
[2023-06-05] MEDS: ELIQUIS 5 MG PO (10:03)
[2023-06-05] MEDS: ProAmatine 5 MG PO (10:03)
[2023-06-05 11:33] VITALS: BP 167/92
--- NOTE | 2023-06-05 12:43 | W.PN.HOSP.TC ---
Addendum entered and electronically signed by Kwesi Tapia MD 06/05/23 15:33:
[id number]
Original Note:
Today's Communication/Plan
-
Midodrine
DC
f/u neurology, cards, pcp, urology outpatient
Assessment / Plan
Assessment / Plan
Physical Exam
General: Well Developed, Well Nourished and No Apparent Distress
HEENT: NormoCephalic, Moist mucous membranes and Atraumatic
Respiratory: Clear
Cardiac: S1/S2 and Regular Rhythm; No Murmur or Rub
GI: Soft, Non Tender, Non Distended and Normal Bowel Sounds; No Organomegaly
Rectal: Deferred by Provider
Musculoskeletal: No Clubbing, No Cyanosis and No Edema
Skin: No Rash
Neuro: AO x 3 and Nonfocal/grossly intact
Psych: Calm
#Syncope most likely 2/2 to
#Orthostatic hypertension
� Suspect secondary to autonomic dysfunction in setting of Parkinson's disease
� Stop alfuzosin, metoprolol
� Start midodrine 5 mg bid - 8 am and 5 pm, monitor for hypertension, supine; may be titrated 3 times daily if blood pressures permit
� Cortisol, TSH with reflex T4 within normal limits
� Received fluids, do not suspect this is due to dehydration
� No evidence of infectious source at this time, UA negative, afebrile
� Pacemaker interrogated in ED, no acute findings
� CT head unremarkable
� Appreciate cardiology recommendations
� Echo EF 50%, aortic sclerosis�stenosis 05/07/2023
�Educated on slow rising, monitoring hypotension, orthostatics
� Follow-up PCP, cardiology, neurology closely
#CAD
# Recent cath
�Eliquis, statin
� Cardiology following
#Atrial fibrillation, paroxysmal
Stable
Continue Eliquis
#Leukocytosis
� Most likely stress reaction secondary to syncope
� Monitor fever curve, no evidence of infection at this time
-resolved
#Fall-secondary to syncope
� No evidence of fractures on x-ray
� Pain control
#hyponatremia, acute
-ctm
-F/u bmp outpatient
#History of BPH
alfuzosin stopped
-monitor bph symptoms outpatient
# History of A-fib
-Eliquis continued
# Depression
-Lexapro continued
# Hyperlipidemia
-Vytorin continued
# GERD
-omeprazole continued
# Back pain
-On prednisone taper dose
-Tramadol as needed for pain
# DVT prophylaxis
-On Eliquis
# CODE STATUS
-Full code
More than 30 minutes spent in discharge including
Final examination of the patient
Summarizing hospital stay
Instructions for continuing care to all relevant caregivers
Preparation of discharge records, prescriptions, and referral forms
Total time spent (35 in minutes):
Anticipated Discharge: Today
Subjective/Interval History
-
Date of Service: June 05, 2023
no acute events
Objective Data
-
Labs:
Laboratory Results
06/05/23
07:14
WBC 9.7
Hgb 12.2 L
Hct 36.8 L
Plt Count 141
Sodium 133 L
Potassium 4.6
Chloride 99
Carbon Dioxide 25
BUN 26 H
Creatinine 1.0
Glucose 104 H
Calcium 9.3
Vital Signs:
Vital Signs
Temp Pulse Resp BP Pulse Ox
97.7 F 61 20 167/92 96
06/05/23 11:33 06/05/23 11:33 06/05/23 11:33 06/05/23 11:33 06/05/23 11:33
I&O
06/04/23 06/05/23 06/06/23
06:59 06:59 06:59
Intake Total 1440 / 1440 700 / 700
Output Total 1350 / 1350 1150 / 1150
Balance 90 / 90 -450 / -450
Review of Systems
-
History Source: Patient
All other systems: Not reviewed unless documented
Data Reviewed
-
Diagnostic Radiology: Image personally visualized and interpreted and Report Reviewed by me
CT Scan: Image personally visualized and interpreted and Report Reviewed by me
Labs: Labs Reviewed by me
--- NOTE | 2023-06-05 13:01 | W.DS.TRANS ---
DC Summary - [employer]
-
Discharge Instructions:
Sleep Apnea Risk Intermediate
Discharge Diagnosis/Procedures Orthostatic hypotension
Diet Low Fat,Low Cholesterol
Activity No strenuous activity,Other activity
Additional Activity As directed to avoid orthostatic hypotension.
Slow to rising. Monitor blood pressures closely
. follow PT recs
Driving Restrictions Not until seen by your Dr
Blood Work bmp in 1 week with pcp
Instructions:
Stand-Alone Forms:
Changes to Home Medications: Yes
Discharge Medications:
DC Medications w/original date entered in [facility]
cyanocobalamin (vitamin B-12) 1,000 mcg tablet (Vitamin B-12) 1,000 mcg PO Q48H@0800 Supplement 10/22/21
apixaban 5 mg tablet (Eliquis) 5 mg PO BID Blood Clot Prevention/Tx 05/15/23
tramadol 50 mg tablet 50 mg PO Q6HPRN PRN severe pain 05/15/23
Eylea 1 dose LEFT EYE Q4W Eye Condition 06/01/23
Eylea 1 dose RIGHT EYE .Q 7 WEEKS Electrolyte Repletion 06/01/23
acetaminophen 325 mg tablet (Tylenol) 650 mg PO BIDPRN PRN mild pain 06/01/23
carboxymethylcellulose sodium 1 % eye liquid gel drops 1 drp BOTH EYES DAILYPRN PRN eye irritation 06/01/23
ciclopirox 1 applic topical .3 TIMES A WEEK PRN apply to scalp 06/01/23
escitalopram oxalate 10 mg tablet (Lexapro) 10 mg PO HS Mental Health/Anxiety 06/01/23
ezetimibe 10 mg-simvastatin 20 mg tablet (Vytorin) 1 tab PO HS High Cholesterol 06/01/23
lorazepam 0.5 mg tablet 0.5 mg PO BIDPRN PRN anxiety 06/01/23
methylprednisolone 4 mg tablets in a dose pack 0 mg PO PER PKG DIR Anti-Inflammatory 06/01/23
omeprazole 20 mg capsule,delayed release 20 mg PO Q48H@0800 Gastrointestinal Issue 06/01/23
vit C 250 mg-vit E 90 mg-zinc 40 mg-copper 1 [id number] capsule (PreserVision AREDS-2) 1 cap PO BID Supplement 06/01/23
pantoprazole 40 mg tablet,delayed release 40 mg PO Q48H 30 days #15 tabs 06/02/23
midodrine 5 mg tablet 5 mg PO BID@0800,1700 #0 tabs 06/05/23
Home Medication Changes
Stop Alfuzosin
Start midodrine 5mg bid
Pending Results: No
== END 2023-06-05 14:01 | DRG 57 ==
LOC: 4 WEST ACU 17:45
PROVIDERS: Registered Nurse; ADMITTING PHYSICIAN Internal Medicine; CONSULT PHYSICIAN Internal Medicine Cardiovascular Disease; CONSULT PHYSICIAN Psychiatry & Neurology Neurology; EMERGENCY PHYSICIAN Emergency Medicine; FAMILY PHYSICIAN Family Medicine
DX: G90.3 Multi-system degeneration of the autonomic nervous system (principal); E87.1 Hypo-osmolality and hyponatremia; G20.A1 Parkinson's disease without dyskinesia, without mention of fluctuations; I25.10 Atherosclerotic heart disease of native coronary artery without angina pectoris; I48.0 Paroxysmal atrial fibrillation; N40.0 Benign prostatic hyperplasia without lower urinary tract symptoms; G35 Multiple sclerosis; Z75.1 Person awaiting admission to adequate facility elsewhere
CPT/HCPCS: 70450; 71101; 73502; 80048; 80053; 81003; 82533; 84439; 84443; 84484; 85025; 85027; 85610; 86803; 87040; 93005; 96360; 96361; 97116; 97162; 97166; 97530; 99285

== ENCOUNTER 2023-09-22 06:09 | Outpatient (RCR) | payer OTHER, SELFPAY | END 2023-09-22 23:59 | disposition home or self-care (01) | LOC: RPT 06:09 | PROVIDERS: ATTENDING PHYSICIAN Psychiatry & Neurology Neurology; FAMILY PHYSICIAN Family Medicine | DX: G20.A1 Parkinson's disease without dyskinesia, without mention of fluctuations (principal); Z73.6 Limitation of activities due to disability | CPT/HCPCS: 97162; 97530 ==

== ENCOUNTER 2023-10-22 14:59 | Outpatient (RCR) | payer OTHER, SELFPAY | END 2023-10-22 23:59 | disposition home or self-care (01) | LOC: ROT 14:59 | PROVIDERS: ATTENDING PHYSICIAN Psychiatry & Neurology Neurology; FAMILY PHYSICIAN Family Medicine | DX: G20.A1 Parkinson's disease without dyskinesia, without mention of fluctuations (principal); Z73.6 Limitation of activities due to disability | CPT/HCPCS: 97110; 97112; 97166; 97530 ==

== ENCOUNTER 2023-12-24 10:01 | Outpatient (RCR) | payer OTHER, SELFPAY | END 2023-12-24 23:59 | disposition home or self-care (01) | LOC: RST 10:01 | PROVIDERS: ATTENDING PHYSICIAN Family Medicine | DX: R49.0 Dysphonia (principal); G20.A1 Parkinson's disease without dyskinesia, without mention of fluctuations; Z73.6 Limitation of activities due to disability | CPT/HCPCS: 92507; 92524 ==

== ENCOUNTER 2023-12-31 14:30 | Outpatient (RCR) | payer OTHER, SELFPAY | END 2024-01-01 07:34 | disposition home or self-care (01) | LOC: RST 14:30 | PROVIDERS: ATTENDING PHYSICIAN Family Medicine | DX: R49.0 Dysphonia (principal); G20.A1 Parkinson's disease without dyskinesia, without mention of fluctuations; Z73.6 Limitation of activities due to disability | CPT/HCPCS: 92507 ==

== ENCOUNTER 2024-04-28 09:12 | Outpatient (RCR) | payer SELFPAY | END 2024-04-28 23:59 | disposition home or self-care (01) | LOC: RST 09:12 | PROVIDERS: ATTENDING PHYSICIAN Family Medicine | DX: G20.A1 Parkinson's disease without dyskinesia, without mention of fluctuations (principal) ==

== ENCOUNTER 2024-06-29 09:00 | Outpatient (RCR) | payer OTHER, SELFPAY | END 2024-06-29 23:59 | disposition home or self-care (01) | LOC: RST 09:00 | PROVIDERS: ATTENDING PHYSICIAN Family Medicine | DX: G20.C Parkinsonism, unspecified (principal) ==

== ENCOUNTER 2024-08-31 12:31 | Outpatient (RCR) | payer SELFPAY | END 2024-08-31 23:59 | disposition home or self-care (01) | LOC: RST 12:31 | PROVIDERS: ATTENDING PHYSICIAN Family Medicine | DX: G20.A1 Parkinson's disease without dyskinesia, without mention of fluctuations (principal) ==

== ENCOUNTER 2024-10-26 09:37 | Outpatient (RCR) | payer SELFPAY | END 2024-11-22 09:38 | disposition home or self-care (01) | LOC: RST 09:37 | PROVIDERS: ATTENDING PHYSICIAN Family Medicine | DX: G20.C Parkinsonism, unspecified (principal) ==

== ENCOUNTER 2024-10-26 13:34 | Outpatient (RCR) | payer OTHER, SELFPAY | END 2024-10-26 23:59 | disposition home or self-care (01) | LOC: RST 13:34 | PROVIDERS: ATTENDING PHYSICIAN Family Medicine | DX: G20.A1 Parkinson's disease without dyskinesia, without mention of fluctuations (principal) ==

== ENCOUNTER → 2024-10-31 08:57 | Outpatient (REF) | payer OTHER, SELFPAY | LOC: HWRAD 08:57 | PROVIDERS: ATTENDING PHYSICIAN Physician Assistant Surgical; FAMILY PHYSICIAN Family Medicine | DX: M25.511 Pain in right shoulder (principal) | CPT/HCPCS: 73200 ==

== ENCOUNTER 2024-12-28 13:48 | Outpatient (RCR) | payer SELFPAY | END 2024-12-28 23:59 | disposition home or self-care (01) | LOC: RST 13:48 | PROVIDERS: ATTENDING PHYSICIAN Family Medicine | DX: G20.A1 Parkinson's disease without dyskinesia, without mention of fluctuations (principal) ==